=== PATIENT | male | born 1980 | race Caucasian/White ===

== ENCOUNTER 2020-04-19 17:17 | Emergency (ER) | payer OTHER ==
[~2020-04-19] VITALS: Ht 175.3 cm; Wt 86.2 kg
[~2020-04-19 17:17] MED LIST: ANAPROX DS550 MG PO; CLONAZEPAM 1 MG1 M1; FLEXERIL PO; HYDROCODON-ACE1 EACH PO; LISINOPRIL30 MG; NOHOMEMEDICATIONS; NORCO 5-325 TA1 EACH PO; ULTRAM 50MG TAB50 MG PO; XANAX XR1 MG; ZPAK PO
[2020-04-19] MEDS ORDERED: ZESTRIL30 MG PO (17:48)
[2020-04-19] MEDS ORDERED: VISTARIL50 MG PO (17:49)
[2020-04-19 19:22] LABS: HEMATOCRIT 41.6 % (42.0-52.0); HEMOGLOBIN 14.3 gm/dL (14.0-18.0); MCH 29.9 pg (26.0-34.0); MCHC 34.5 g/dL (28.0-37.0); MCV 86.8 fL (80.0-100.0); PLATELET COUNT 267 thou/uL (150-400); RBC 4.79 mil/uL (4.50-6.00); RDW 14.1 % (10.5-14.5); WBC 12.9 thou/uL (4.0-11.0)
[2020-04-19 19:35] LABS: ANION GAP 12 mmol/L (7-16); BUN 16 mg/dL (7-18); CALCIUM 8.7 mg/dL (8.5-10.1); CHLORIDE 101 mmol/L (98-107); CO2 24 mmol/L (21-32); CREATININE 1.5 mg/dL (0.7-1.3); GLUCOSE 115 mg/dL (74-106); POTASSIUM 3.1 mmol/L (3.5-5.1); SODIUM 137 mmol/L (136-145)
[2020-04-19 19:48] LABS: SALICYLATE < 2.8 mg/dL (2.8-20.0)
[2020-04-19 19:54] LABS: ABSOLUTE NEUTROPHILS 9.3 thou/uL (1.4-8.2)
[2020-04-19 23:10] LABS: AMP/METHAMP POSITIVE (Negative); BARBITURATES Negative (Negative); BENZODIAZEPINES Negative (Negative); COCAINE Negative (Negative); METHADONE Negative (Negative); OPIATES Negative (Negative); PCP Negative (Negative)
[2020-04-20 12:34] VITALS: BP 142/82
== END 2020-04-20 11:48 | disposition home or self-care (01) ==
LOC: ER 17:17
PROVIDERS: Nurse Practitioner
DX: F43.10 Post-traumatic stress disorder, unspecified (principal); F41.9 Anxiety disorder, unspecified; F31.9 Bipolar disorder, unspecified; F15.90 Other stimulant use, unspecified, uncomplicated; Y99.8 Other external cause status; I10 Essential (primary) hypertension; E78.00 Pure hypercholesterolemia, unspecified; F17.210 Nicotine dependence, cigarettes, uncomplicated; Z88.0 Allergy status to penicillin; Z79.899 Other long term (current) drug therapy; X58.XXXA Exposure to other specified factors, initial encounter; Y93.89 Activity, other specified; Y92.89 Other specified places as the place of occurrence of the external cause